=== PATIENT | male | born 1950 | race Two or more races ===

== ENCOUNTER 2023-05-20 05:56 | Day surgery (SDC) | payer OTHER ==
[2023-05-14 08:44] LABS: HEMATOCRIT 44.8 % (39.0-48.0); HEMOGLOBIN 15.6 g/dL (13-16.00); MEAN CELL VOLUME 90.1 fL (80.0-100.00); MEAN CORPUSCULAR HEMOGLOBIN 31.4 pg (27.00-32.0); MEAN CORPUSCULAR HGB CONC 34.9 g/dl (32.0-36.0); PLATELET COUNT 199 K/uL (150-450); RED BLOOD COUNT 4.97 M/uL (4.00-6.00); RED CELL DISTRIBUTION WIDTH 14.6 % (11.5-14.5); URINE APPEARANCE Clear; URINE BILIRRUBIN Negative (NEGATIVE); URINE BLOOD Trace; URINE COLOR Yellow; URINE GLUCOSE Negative (NEGATIVE); URINE LEUKOCYTE Negative; URINE NITRATE Negative; URINE PROTEIN Negative (NEGATIVE); URINE UROBILINOGEN 0.2 E.U./dl
[2023-05-14 08:48] LABS: URINE BACTERIA 13.8 uL (0.0-1933); URINE RBC 8.7 uL (0.0-20.8); URINE WBC 3.6 uL (0.0-23.2)
[2023-05-14 09:14] LABS: INR 0.98; PARTIAL THROMBOPLASTIN TIME 27.6 SECONDS (22.0-34.0); PROTHROMBIN TIME 10.3 SECONDS (9.0-11.5)
[2023-05-14 09:21] LABS: ALBUMIN 4.2 gm/dL (3.4-5.0); BILIRUBIN TOTAL 0.6 mg/dL (0.3-1.2); CALCIUM 9.6 mg/dL (8.5-10.1); CREATININE SERUM 1.39 mg/dL (0.70-1.30); GFR 50.09; GLOBULINA 3.5 G/DL (2.4-3.5); POTASSIUM 4.59 mEq/L (3.5-5.1); TOTAL PROTEIN 7.7 gm/dL (6.4-8.2)
[~2023-05-20 05:56] MED LIST: NORVASC5 MG PO; TAMS0.4C PO; VITAMIN D PO
== END 2023-05-20 13:45 | disposition home or self-care (01) ==
LOC: CIR.AMB 05:56
PROVIDERS: ATTEND Specialist
DX: K42.0 Umbilical hernia with obstruction, without gangrene (principal); I10 Essential (primary) hypertension; Z88.0 Allergy status to penicillin

== ENCOUNTER 2023-05-22 09:39 | Emergency (ER) | payer OTHER ==
[~2023-05-22] VITALS: Ht 177.8 cm; Wt 74.8 kg
[2023-05-22] MEDS ORDERED: FAMOTIDINE20 MG (10:22)
[2023-05-22 11:03] LABS: HEMATOCRIT 47.7 % (39.0-48.0); HEMOGLOBIN 16.5 g/dL (13-16.00); MEAN CORPUSCULAR HEMOGLOBIN 31.2 pg (27.00-32.0); MEAN CORPUSCULAR HGB CONC 34.6 g/dl (32.0-36.0); PLATELET COUNT 236 K/uL (150-450); RED BLOOD COUNT 5.29 M/uL (4.00-6.00); RED CELL DISTRIBUTION WIDTH 14.3 % (11.5-14.5)
[2023-05-22 11:27] LABS: CALCIUM 10.5 mg/dL (8.5-10.1); CREATININE SERUM 1.35 mg/dL (0.70-1.30); GFR 51.8; POTASSIUM 4.38 mEq/L (3.5-5.1)
[2023-05-22 12:04] LABS: AMYLASE 71 U/L (25-115); LIPASE 20 U/L (13-75)
[2023-05-22 13:45] LABS: PH,URINE 6.5 (5.0-8.0); URINE APPEARANCE Clear; URINE BILIRRUBIN Negative (NEGATIVE); URINE BLOOD Small; URINE COLOR Yellow; URINE GLUCOSE Negative (NEGATIVE); URINE LEUKOCYTE Negative; URINE NITRATE Negative; URINE PROTEIN Negative (NEGATIVE); URINE UROBILINOGEN 0.2 E.U./dl
[2023-05-22 13:49] LABS: URINE EPITHELIAL CELLS 1.9 uL (0.0-38.8); URINE RBC 27.3 uL (0.0-20.8)
[2023-05-22 13:52] LABS: URINE BACTERIA 3.7 uL (0.0-1933); URINE WBC 1.6 uL (0.0-23.2)
== END 2023-05-22 17:54 | disposition home or self-care (01) ==
LOC: ER 09:40
PROVIDERS: Emergency Medicine
DX: R11.10 Vomiting, unspecified (principal); Z88.0 Allergy status to penicillin; Z98.890 Other specified postprocedural states
CPT/HCPCS: 36415; 74176; 96365; 96366; 99284; J2405; J3490; J7030